=== PATIENT | male | born 1965 | race African-American/Black ===

== ENCOUNTER 2020-06-20 16:09 | Emergency (ER) | payer OTHER ==
[~2020-06-20] VITALS: Ht 180.3 cm; Wt 86.2 kg
[2020-06-20 16:30] VITALS: BP 150/80
--- NOTE | 2020-06-20 16:31 | NUR ---
ED Nurse Note:pt. came with allergic reaction from unknown cause, his bottom lip is swallen since this morning, no SOB or fever reported
[2020-06-20] MEDS ORDERED: DiphenhydrAMINE 50mg/ml Inj IVP ONE (16:45)
[2020-06-20] MEDS ORDERED: Tranexamic Acid 500 MG in NS 55 ML IVPB ONE (16:45)
[2020-06-20] MEDS ORDERED: Solu-MEDROL 125mg Inj IVP ONE (16:45)
--- NOTE | 2020-06-20 17:01 | Emergency Room Report ---
History of Present Illness General Chief Complaint: Allergic Reaction Source: Patient Present Illness HPI 54-year-old male with history of CAD status post CABG, hypertension, dyslipidemia presents emergency department with lower lip swelling x 1 day. Patient takes lisinopril. Denies tongue swelling, hoarse voice, stridor, drooling, shortness of breath, nausea, vomiting, rash, chest pain, hemoptysis or any other symptoms. The patient's symptoms were gradual onset, severity was moderate, duration since 1 day. Quality: Swelling This is patient's first episode. I have instructed him to not ever take lisinopril again. He denies any new foods, soaps, detergents. Past medical history: Hypertension, dyslipidemia, CAD Past surgical history: CABG Smoking: Denies Alcohol use: Denies Drug use: Denies Review of systems: CONST: No fevers or chills, No night sweats PULMONARY: No productive cough, No shortness of breath CARDIAC: No chest pain, No palpitations GI: No vomiting, No diarrhea , No melena_or_BRBPR : No dysuria, No hematuria, No discharge NEURO: No new_focal_weakness_or_numbness, No confusion, No vision changes 14 point Review of Systems is otherwise negative except per HPI Physical Exam: GENERAL: Awake_alert_ nontoxic, no acute distress Spo2 98% on RA -normal EYES: Extraocular muscles are intact. Conjunctivae clear. Lids without swelling ENT: Mild lower lip swelling. No tongue swelling. Uvula is midline. No visible peritonsillar abscess. No submandibular swelling or cellulitis. No palpable crepitus. Poor dentition. No periapical abscess. No tenderness to palpation of trachea NECK: No JVD. No meningismus. No thyromegaly. Supple. Trachea midline RESP: Normal respiratory effort. Symmetric rise. No stridor. Clear_to_auscultation_No_rales_No_wheezes CARDIAC: Regular rate and regular rhytm. No_significant pedal edema. ABDOMEN: Soft. Nondistended. Nontender_No_rebound_or_guarding. MSK: Normal muscle tone, without rigidity. Extremities without asymmetric deformity or swelling. SKIN: Warm and dry. No visible cyanosis or pallor NEUROLOGIC: Alert, oriented x3. Motor_and_sensation_grossly_intact. No truncal ataxia. Gait_normal Psych: Normal mood and affect, normal judgment and insight - COORDINATION OF CARE Case was discussed with: Patient Any labs and imaging that were ordered were interpreted as part of the medical decision making: Medical Decision Making/Plan: Patient presenting with mild edema of the lower lip in the setting of taking lisinopril, appears consistent with mild angioedema. Patient protecting airway, no need for prophylactic intubation at this time point. No involvement of hard palate, soft palate, tongue, or upper lip. No stridor or drooling. Risks and benefits of epinephrine IM were discussed. Because of the fact that patient has previous CABG, we collectively decided that IM epi could do more harm than provide benefit. He was given TXA, Benadryl, and Solu-Medrol and was observed for several hours. FFP x2. Patient observed with serial exams for over 3 hours and had minimal improvement after the meds. Due to airway concern, will admit to the hospital Labs show hyponatremia and hypoglycemia. Was given po food and juice for hypoglycemia. Patient was instructed to avoid lisinopril in the future. He has a follow up with his nurse charge rn in 2 days. The patient was instructed to avoid potential precipitating factor and to follow up with their regular physician for referral to community support specialist for definitive allergy testing. I spoke with Dr. Hurt, and reviewed the patients presentation, workup, results, and treatment. They will admit the patient for further care and evaluation, and assume care of the patient at this time. Patient threatened to leave AMA multiple times. I spent approximately 20 minutes at bedside explaining the diagnosis of pathogenesis, causes, and treatment for angioedema. I explained the potentially life-threatening nature of his diagnosis. He was verbally aggressive, shouting curse words, but eventually decided to stay in the hospital for observation and further treatment. -CRITICAL CARE STATMENT- Given patient's presentation with acute anaphylaxis, required my immediate eval uation and attention Organ systems at risk include: cardiac / circulatory /respiratory/Airway Critical care performed for 120 minutes. Time is exclusive of separately billable procedures. Time includes: direct patient care, patient reassessment, coordination of patient care, review of patient's medical records, medical consultation, family consultation regarding treatment decisions and documentation of patient care. 1952: Patient became irate, cursing with nurses and arguing with someone on his cell phone. Screaming at nursing staff, myself, and whoever he is also talking to on the phone. The patient decided to leave AGAINST MEDICAL ADVICE. Initially he refused to sign AGAINST MEDICAL ADVICE, however he ultimately signed. They understand the risks, benefits, and alternatives of continued treatment versus leaving. They understand the risks including but not limited to: , PERMANENT DISABILITY, worsening condition, missed diagnosis, associated with lack of potential further testing, monitoring, and treatments. The patient has capacity to make this decision in my opinion. The patient was encouraged to follow up with their primary care provider as soon as possible and to return immediately if they change their mind or if symptoms worsen or for any other concerns. RN was present for the discussion. All patient questions were answered. HE IS REFUSING ANY MEDICATION FOR DISCHARGE. Yelled at myself, charge nurse Kamar, and RN Ale. Dr Hurt made aware. Allergies: Coded Allergies: No Known Allergies (Unverified , 06/20/20) COVID-19 Screening Contact w/high risk pt: No Experienced COVID-19 symptoms?: No COVID-19 Testing performed VAMP MAKER: No Nursing Documentation-PMH Hx Cardiac Problems: Yes Hx Hypertension: Yes Physical Exam Vital Signs Date Time Temp Pulse Resp B/P (MAP) Pulse Ox O2 Delivery O2 Flow Rate FiO2 06/20/20 16:19 97.9 78 18 150/80 (103) 98 Room Air Sp02 EP Interpretation: reviewed, normal Medical Decision Making Diagnostic Impression: Primary Impression: Angio-edema Additional Impressions: Hyponatremia Hypoglycemia Hx of CABG EKG Diagnostic Results Troponin ordered: Yes PA Scribe Text 12-lead EKG (interpreted by me) Time: 1740 Indication: Rhythm analysis Tracing visualized and Interpreted by me. Rhythm: Normal sinus rhythm Rate: 61 bpm QTc: 406 Morphology: No_significant_ST_elevations_or_depressions, No STEMI Impression: Normal_sinus_rhythm_without_significant_abnormality, first-degree AV block. Q waves lead V1 through V4. Nonspecific. No acute ST elevation VT Rhythm Strip Diag. Results Rhythm Strip Time: 17:00 EP Interpretation: yes Rate: 71 Rhythm: NSR, no PVC's, no ectopy Reevaluation Time: 17:00 Last Vital Signs Date Time Temp Pulse Resp B/P (MAP) Pulse Ox O2 Delivery O2 Flow Rate FiO2 06/20/20 16:30 97.9 78 18 150/80 98 Room Air Status: improved Disposition: AGAINST MEDICAL ADVICE Admit Decision Time: 19:53 Condition: Unknown Roxanne Garner D.O. Jun 20, 2020 17:00
[2020-06-20 17:19] LABS: BASOPHILS % (AUTO) 1.7 % (0.0-2.0); EOSINOPHILS % (AUTO) 1.1 % (0.0-3.0); HEMATOCRIT 42.8 % (42.0-52.0); HEMOGLOBIN 14.8 G/DL (14.2-18.0); LYMPHOCYTES % (AUTO) 43.3 % (20.0-45.0); MEAN CORPUSCULAR VOLUME 83 FL (80-99); MONOCYTES % (AUTO) 6.8 % (1.0-10.0); NEUTROPHILS % (AUTO) 47.1 % (45.0-75.0); PLATELET COUNT 285 K/UL (150-450); RED BLOOD COUNT 5.15 M/UL (4.70-6.10); RED CELL DISTRIBUTION WIDTH 14.4 % (11.6-14.8); WHITE BLOOD COUNT 9.9 K/UL (4.8-10.8)
[2020-06-20 18:17] LABS: ALANINE AMINOTRANSFERASE 29 U/L (12-78); ALKALINE PHOSPHATASE 70 U/L (46-116); ANION GAP 4 mmol/L (5-15); ASPARTATE AMINO TRANSFERASE 23 U/L (15-37); BILIRUBIN,TOTAL 0.6 MG/DL (0.2-1.0); BLOOD UREA NITROGEN 16 mg/dL (7-18); CALCIUM 8.5 MG/DL (8.5-10.1); CARBON DIOXIDE 22 MMOL/L (21-32); CHLORIDE 99 MMOL/L (98-107); CREATININE 0.9 MG/DL (0.55-1.30); POTASSIUM 3.9 MMOL/L (3.5-5.1); SODIUM 125 MMOL/L (136-145)
--- NOTE | 2020-06-20 18:50 | NUR ---
ED Nurse Note: lab called about hemolyzed blood, attempted to redraw blood from pt, he became verbally abusive and insulting staff, refusing blood draw. ERMD and lab notified
--- NOTE | 2020-06-20 19:15 | NUR ---
ED Nurse Note: Recieved report from am nurse to resume care, pt is in bed awake, alert and oriented x4, introduced self to pt and pt is very angry, speaking about being mis diagnosed with low sodium and speaking very angrily towards staff, pt stating "yall dont kiow what yall talking about", "why the doctor tell me i can ", "yall full of shit", allowed pt to vent and express feelings, also attempted to speak to pt about admission, pt became very angry again, yelling and cursing that he is not going to stay, pt also speaking on phone with family members in same manner whom are also attempting to calm pt, pt has patent saline lock, pt does admit to lip swelling decreasing, v/s stable, pt given sandwich and juice to eat, will resume care as ordered and continue to closely monitor, pt continuing to decide if he will stay for hospital admission.
[2020-06-20 19:30] VITALS: BP 132/83
--- NOTE | 2020-06-20 19:40 | NUR ---
ED Nurse Note: Pt continues to speak with family on phone, yelling and shouting, pt suddennly asked why he is here and what are we doing, reminded pt of hospital admission and pt started screaming stating he will not stay here, pt jumped out of bed, pulled off all equipment, shouting very loud and calling all staff "stupid", continuing to state he does not have low sodium, pt demanded to leave, IV line was removed, pt signed ama form and left facility, pt is ambulatory and has all belongings. immediately informed.
[2020-06-20 19:50] VITALS: BP 132/83
== END 2020-06-20 19:50 | disposition left against medical advice (07) ==
LOC: EMR 18:22 → CANBEDREQ 19:52
DX: T78.3XXA Angioneurotic edema, initial encounter (principal); E87.1 Hypo-osmolality and hyponatremia; E16.2 Hypoglycemia, unspecified; I25.10 Atherosclerotic heart disease of native coronary artery without angina pectoris; Z95.1 Presence of aortocoronary bypass graft; I10 Essential (primary) hypertension; E78.5 Hyperlipidemia, unspecified
CPT/HCPCS: 36415; 80053; 84484; 85025; 86850; 86900; 86901; 93005; 96365; 96375; 99291; 99292; J1200; J2930